=== PATIENT | male | born 1955 | race Caucasian/White ===

== ENCOUNTER 2017-03-19 22:09 | Observation (INO) | payer BC ==
--- NOTE | 2017-03-19 22:53 | ED ---
Chest Pain HPI - General Chief Complaint: Chest Pain Stated Complaint: Chest Pain Time Seen by Provider: 03/19/17 22:24 Source: patient Mode of arrival: ambulatory Limitations: no limitations - History of Present Illness Initial Comments: This patient is a 61-year-old man who presents to be evaluated for left-sided chest pain that developed approximately 8:30 PM tonight while he was driving home from [place]. The patient states that it is an aching, he thought that it may be related to the muscle body hadn't exerted himself to the past few days. When the pain felt like it was going to his neck and also to his left arm he decided to be checked here. He did take aspirin. The patient states the pain is aching, constant, was moderate but is now mild. He did not have any associated symptoms that came after the pain started. He did state that he felt like he had an upset stomach earlier, and he tried a milkshake for that but didn't really change. MD Complaint: chest pain Onset/Timin -: hour(s) Onset: other (While driving) Pain Location: left chest Pain Radiation: LUE, neck Severity: moderate Quality: dull Consistency: constant Improves With: nothing Worsens With: nothing Treatments Prior to Arrival: aspirin - Related Data Home Medications Medication Instructions Recorded Confirmed Aspirin 325 mg PO DAILY 01/19/16 03/19/17 Cholecalciferol [Vitamin D3] 5,000 unit PO DAILY 01/19/16 03/19/17 Loratadine [Claritin] 10 mg PO DAILY PRN 01/19/16 03/19/17 Multivitamins, Thera [Multivitamin 1 tab PO DAILY 03/19/17 03/19/17 (formulary)] Terbinafine [LamISIL] 250 mg PO DAILY 03/19/17 03/19/17 Triamcinolone Acetonide [Nasacort] 1 spray EA NOSTRIL HS 03/19/17 03/19/17 Allergies Allergy/AdvReac Type Severity Reaction Status Date / Time adhesive tape Allergy Itching/Swe Verified 03/19/17 22:58 lling cephalexin [From Keflex] AdvReac Nausea & Verified 03/19/17 22:58 Vomiting Review of Systems ROS Statement: Those systems with pertinent positive or pertinent negative responses have been documented in the HPI. ROS Other: All systems not noted in ROS Statement are negative. Constitutional: Denies: fever, chills Respiratory: Denies: cough, dyspnea Cardiovascular: Reports: as per HPI, chest pain. Denies: palpitations, edema, syncope Gastrointestinal: Reports: as per HPI, nausea. Denies: abdominal pain, vomiting , diarrhea Genitourinary: Denies: dysuria, hematuria Musculoskeletal: Denies: back pain Skin: Denies: rash Neurological: Denies: headache, weakness, numbness EKG Findings - EKG Results: EKG: interpreted by DREA CABELLO, sinus rhythm (Rate 73 bpm), normal axis, normal QRS, normal ST/T, no acute changes - MT, Pacemaker, Normal: Normal tracing: normal tracing Past Medical History Past Medical History: Hypertension, Sleep Apnea/CPAP/BIPAP Additional Past Medical History / Comment(s): LEFT INGUINAL AND UMBILICAL HERNIA History of Any Multi-Drug Resistant Organisms: None Reported Past Surgical History: Orthopedic Surgery Additional Past Surgical History / Comment(s): ROC SHOULDER SX, LEFT KNEE ARTHROSCOPY, UMBILICAL AND INGUINAL HERNIA Past Anesthesia/Blood Transfusion Reactions: Previous Problems w/ Anesthesia, Motion Sickness, Postoperative Nausea & Vomiting (PONV) Additional Past Anesthesia/Blood Transfusion Reaction / Comment(s): PATIENT STATES LONGER TO WAKE UP" Past Psychological History: No Psychological Hx Reported Smoking Status: Never smoker - Past Family History Father Family Medical History: Cancer Additional Family Medical History / Comment(s): PROSTATE Mother Family Medical History: Cancer Additional Family Medical History / Comment(s): SKIN General Exam Limitations: no limitations General appearance: alert, in no apparent distress Head exam: Present: atraumatic, normocephalic Eye exam: Present: normal appearance. Absent: scleral icterus, conjunctival injection ENT exam: Present: normal oropharynx Neck exam: Present: normal inspection, full ROM Respiratory exam: Present: normal lung sounds bilaterally. Absent: respiratory distress, wheezes, rales, rhonchi, stridor Cardiovascular Exam: Present: regular rate, normal rhythm, normal heart sounds. Absent: systolic murmur, diastolic murmur, rubs, gallop GI/Abdominal exam: Present: soft. Absent: distended, tenderness, guarding, rebound, mass Extremities exam: Present: normal inspection, normal capillary refill. Absent: pedal edema, calf tenderness Back exam: Present: normal inspection. Absent: CVA tenderness (R), CVA tenderness (L) Neurological exam: Present: alert Skin exam: Present: warm, dry, intact, normal color. Absent: rash Course Vital Signs 03/19/17 03/19/17 22:16 22:49 Temperature 97.7 F Pulse Rate 85 75 Respiratory 18 16 Rate Blood Pressure 129/86 131/78 O2 Sat by Pulse 98 98 Oximetry Disposition Clinical Impression: Chest pain Disposition: ADMITTED IP TO THIS HOSP Condition: Fair Referrals: Mane Griffiths DO [Primary Care Provider] - 1-2 days
[2017-03-19 23:07] LABS: Basophils % (A) 1 %; CH 30.2; CHCM 34.6; Eosinophils # (A) 0.2 k/uL (0-0.7); Eosinophils % (A) 2 %; HCT 40.8 % (39.0-53.0); HDW 2.62; HGB 14.7 gm/dL (13.0-17.5); Luc # (Auto) 0.11; Luc % (Auto) 2; Lymphocytes % (A) 28 %; MCH 31.6 pg (25.0-35.0); MCV 87.8 fL (80.0-100.0); Mean Platelet Volume 7.5; Monocytes # (A) 0.5 k/uL (0-1.0); Monocytes % (A) 6 %; Neutrophils # (A) 4.4 k/uL (1.3-7.7); Neutrophils % (A) 61 %; RBC 4.65 m/uL (4.30-5.90); RDW 13.6 % (11.5-15.5); WBC 7.2 k/uL (3.8-10.6); WBC (Perox) 6.81
[2017-03-19 23:23] LABS: ALT 50 U/L (21-72); AST 30 U/L (17-59); Alkaline Phosphatase 65 U/L (38-126); Anion Gap 11 mmol/L; Blood Urea Nitrogen 15 mg/dL (9-20); Calcium 9.6 mg/dL (8.4-10.2); Carbon Dioxide 25 mmol/L (22-30); Chloride 106 mmol/L (98-107); Glucose 124 mg/dL (74-99); Magnesium 2.1 mg/dL (1.6-2.3); Non-African American GFR(MDRD) >60 (>60 ml/min/1.73 sqM); Potassium 4.2 mmol/L (3.5-5.1); Sodium 142 mmol/L (137-145); Total Bilirubin 0.2 mg/dL (0.2-1.3); Total Protein 6.6 g/dL (6.3-8.2)
[2017-03-19 23:28] LABS: Creatine Kinase 143 U/L (55-170)
[2017-03-19] MEDS ORDERED: MORPHINE SULFATE 2 MG/ML SYRINGE IVP PRN (23:41)
[2017-03-19 23:42] LABS: Creatine Kinase MB 1.7 ng/mL (0.0-2.4); Troponin I <0.012 ng/mL (0.000-0.034)
--- NOTE | 2017-03-19 23:43 | XR ---
EXAM: XR Chest, 2 Views CLINICAL HISTORY: Reason: Chest Pain TECHNIQUE: Frontal and lateral views of the chest. COMPARISON: None. FINDINGS: Lungs: Hyperinflation of both lungs is seen with probable mild interstitial fibrotic changes, likely representing COPD. No evidence of consolidation. Pleural space: Unremarkable. No pneumothorax. Heart: Unremarkable. No cardiomegaly. Mediastinum: Unremarkable. Bones/joints: Unremarkable. IMPRESSION: Hyperinflation of both lungs with probable mild interstitial fibrotic changes, likely representing COPD.
[2017-03-20 00:13] LABS: INR 0.9 (<1.1); Prothrombin Time 9.5 sec (9.0-12.0)
[2017-03-20 00:20] LABS: Partial Thromboplastin Time 22.1 sec (22.0-30.0)
[2017-03-20 00:39] VITALS: BMI 29.7
[2017-03-20] MEDS ORDERED: FLUTICASONE 50MCG/SPRAY NASAL 16GM EA NOSTRIL SCH ×2 (00:41→21:00)
[2017-03-20] MEDS: NITROGLYCERIN SL TABS 0.4 MG TAB SUBLINGUAL PRN ×2 (00:45→00:55)
[2017-03-20 06:47] LABS: Cholesterol 182 mg/dL (<200); HDL Cholesterol 35 mg/dL (40-60); Triglycerides 160 mg/dL (<150)
[2017-03-20 07:01] LABS: Creatine Kinase 119 U/L (55-170)
[2017-03-20 07:14] LABS: Creatine Kinase MB 1.1 ng/mL (0.0-2.4); Troponin I <0.012 ng/mL (0.000-0.034)
[2017-03-20 07:34] VITALS: RESP 18
[2017-03-20] MEDS ORDERED: CHOLECALCIFEROL 1,000 UNIT TAB PO SCH (09:00)
[2017-03-20] MEDS ORDERED: METOPROLOL TARTRATE 25 MG TAB PO SCH (09:00)
[2017-03-20] MEDS ORDERED: ASPIRIN 325 MG TAB PO SCH (09:00)
[2017-03-20 11:34] LABS: Creatine Kinase 241 U/L (55-170)
[2017-03-20 11:45] LABS: Creatine Kinase MB 1.1 ng/mL (0.0-2.4); Troponin I <0.012 ng/mL (0.000-0.034)
--- NOTE | 2017-03-20 14:14 | CONS ---
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 He came into the hospital with a left lateral, nondescript chest tightness. Pain is more in the left anterior chest towards his shoulder and also over the deltoid area. Pain seems musculoskeletal, occurs with movement but he does not recall doing any significant physical activity. He apparently was driving home from [id number] when he experienced this, continued to ache, made him concerned and came into the hospital. He took an aspirin, obtained relief and then again took some nitroglycerin and had some relief. Relief with nitroglycerine is very inconsistent. At the time of my evaluation, he is pain-free, resting comfortably. EKG's are normal. Two sets of troponins are normal. PAST MEDICAL HISTORY: 1. Sleep apnea, he uses a CPAP. 2. History of hypertension for which he is not on any regular medication, but apparently his pressure has been good lately. 3. He is status post shoulder surgery, left knee arthroscopy, umbilical and inguinal hernia. EKG revealed a sinus mechanism without significant ST-T changes. Laboratory data revealed that his 3 sets of troponins are normal. LDL cholesterol is 115. No other significant abnormalities were noted. D-dimer was normal. On examination, blood pressure is 126/70, pulse rate is 70 per minute, regular. HEENT unremarkable. Fundus was not examined by me. Neck is supple, no JVD. I do not hear a carotid bruit. There is no thyromegaly. Heart exam reveals S1, S2 heard normally without a rub, murmur or gallop. Lungs are clear. Abdomen is soft, nontender. Lower extremities reveal normal pulses, no edema. Central nervous system is normal. EKG reveals sinus mechanism, no acute changes. IMPRESSION: 1. Atypical chest pain. 2. Question of hypertension. 3. History of sleep apnea, uses a CPAP. RECOMMENDATIONS: I am recommending that we will perform a stress echo and based on this, I will make further recommendations. No intervention is necessary unless we find abnormality on the stress test. Discussed my thoughts in detail with the patient and . Thank you very much for the consult. CORNELIO
[2017-03-20 16:33] VITALS: BP 116/80; PULSE 68; TEMP 98.4
--- NOTE | 2017-03-21 10:50 | ECHOF ---
Referral Reason: MEASUREMENTS -------- HEIGHT: 182.9 cm WEIGHT: 99.8 kg BP: 185/64 RVIDd: 2.8 cm (< 3.3) IVSd: 1.3 cm (0.6 - 1.1) LVIDd: 4.2 cm (3.9 - 5.3) LVPWd: 1.3 cm (0.6 - 1.1) IVSs: 1.8 cm LVIDs: 3.1 cm LVPWs: 1.7 cm LAESV Index (A-L): 15.82 ml/m Ao Diam: 4.4 cm (2.0 - 3.7) AV Cusp: 1.6 cm (1.5 - 2.6) LA Diam: 3.1 cm (2.7 - 3.8) MV EXCURSION: 10.412 mm (> 18.000) MV EF SLOPE: 48 mm/s (70 - 150) EPSS: 0.8 cm MV E James: 0.48 m/s MV DecT: 402 ms MV A James: 0.64 m/s MV E/A Ratio: 0.74 RAP: 5.00 mmHg RVSP: 8.21 mmHg FINDINGS -------- Sinus rhythm. This was a technically adequate study. The left ventricular size is normal. There is mild concentric left ventricular hypertrophy. Overall left ventricular systolic function is normal with, an EF between 55 - 60 %. The right ventricle is normal in size and function. Normal LA size by volume 22+/-6 ml/m2. The right atrium is normal in size. The aortic valve is trileaflet, and appears structurally normal. No aortic stenosis or regurgitation. The mitral valve is normal. Mild mitral regurgitation is present. Mild tricuspid regurgitation present. There is no evidence of pulmonary hypertension. The right ventricular systolic pressure, as measured by Doppler, is 8.21mmHg. The pulmonic valve was not well visualized. There is no pulmonic regurgitation present. The aortic root size is normal. Normal inferior vena cava with normal inspiratory collapse consistent with estimated right atrial pressure of 5 mmHg. There is no pericardial effusion. CONCLUSIONS -------- 1. Sinus rhythm. 2. The aortic root size is normal. 3. There is no pericardial effusion. 4. This was a technically adequate study. 5. There is mild concentric left ventricular hypertrophy. 6. Overall left ventricular systolic function is normal with, an EF between 55 - 60 %. 7. Normal LA size by volume 22+/-6 ml/m2. 8. The aortic valve is trileaflet, and appears structurally normal. No aortic stenosis or regurgitation. 9. Mild mitral regurgitation is present. 10. There is no evidence of pulmonary hypertension. 11. There is no pulmonic regurgitation present. KILN CHARGER: Aramis Andrade RDCS
--- NOTE | 2017-03-21 16:13 | ECHOF ---
Referral Reason:cp MEASUREMENTS -------- HEIGHT: 183.0 cm WEIGHT: 99.8 kg BP: 124/85 WallScoring: string WallScoring: string WallScoring: string FINDINGS -------- Utilizing the standard Raul protocol the patient was exercised for 7 minutes, 21 seconds, achieving a maximum heart rate of 152 , which is 95 % of predicted maximal heart rate. There was physiologic heart rate and blood pressure response to exercise. Max Heart Rate: 152 % of Max Predicted Heart Rate: 95 Rest Heart Rate: 64 Rest BP: 124/85 Max BP: 178/63 Mets Achieved: 8.9 The test was stopped because of fatigue. This level of exercise represents an average exercise tolerance for age. Sinus rhythm. In response to stress, the ECG showed no ST-T wave changes (see exercise report for details). In response to stress, the ECG showed no ST-T wave changes (see exercise report for details). There were normal blood pressure and heart rate responses to stress. LV size, wall thickness and systolic function are normal, with an EF of 60%. Echo images were acquired at peak stress which demonstrated appropriate augmentation of all left ventricular segments with slight decrease in cavity size. CONCLUSIONS -------- 1. The test was stopped because of fatigue. 2. This level of exercise represents an average exercise tolerance for age. 3. No 2D echocardiographic evidence of inducible ischemia to achieved workload. FIRE ALARM INSTALLER: Aramis Andrade RDCS
--- NOTE | 2017-03-21 16:17 | EST ---
Referral Reason:cp MEASUREMENTS -------- HEIGHT: 183.0 cm WEIGHT: 99.8 kg BP: 124/85 FINDINGS -------- Utilizing the standard Raul protocol the patient was exercised for 7 minutes, 21 seconds, achieving a maximum heart rate of 152 , which is 95 % of predicted maximal heart rate. There was physiologic heart rate and blood pressure response to exercise. Max Heart Rate: 152 % of Max Predicted Heart Rate: 95 Rest Heart Rate: 64 Rest BP: 124/85 Max BP: 178/63 Mets Achieved: 8.9 The test was stopped because of fatigue. This level of exercise represents an average exercise tolerance for age. Sinus rhythm. In response to stress, the ECG showed no ST-T wave changes (see exercise report for details). In response to stress, the ECG showed no ST-T wave changes (see exercise report for details). There were normal blood pressure and heart rate responses to stress. LV size, wall thickness and systolic function are normal, with an EF of 60%. Echo images were acquired at peak stress which demonstrated appropriate augmentation of all left ventricular segments with slight decrease in cavity size. CONCLUSIONS -------- 1. The test was stopped because of fatigue. 2. This level of exercise represents an average exercise tolerance for age. 3. No 2D echocardiographic evidence of inducible ischemia to achieved workload. CONSUMER INSIGHTS SPECIALIST: SHAILESH Love
== END 2017-03-20 18:28 | disposition home or self-care (01) ==
LOC: EC 22:09 → 3OBS 23:41
PROVIDERS: ADMIT Family Medicine; ATTEND Family Medicine
DX: R07.89 Other chest pain (principal); K30 Functional dyspepsia; G47.30 Sleep apnea, unspecified; I10 Essential (primary) hypertension; Z79.82 Long term (current) use of aspirin; Z79.899 Other long term (current) drug therapy; Z79.51 Long term (current) use of inhaled steroids; Z88.3 Allergy status to other anti-infective agents; Z91.048 Other nonmedicinal substance allergy status; Z99.89 Dependence on other enabling machines and devices
CPT/HCPCS: 99285 ×2; 36415; 93005; 93017; 93306; 93350; 85379; 80061; 80053; 82550 ×2; 82553 ×2; 83735; 84484 ×2; 85025; 85610; 85730; 71020; G0378 ×2

== ENCOUNTER 2018-06-16 14:57 | Emergency (ER) | payer BC ==
[2018-06-16] MEDS ORDERED: OXYMETAZOLINE 0.05% NASL SPRAY 1 SPRAY BOTTLE NASAL STA (15:19)
[2018-06-16] MEDS: cloNIDine HCL 0.1 MG TAB PO STA ×2 (15:49→16:38)
--- NOTE | 2018-06-16 16:40 | ED ---
ENT HPI - General Chief complaint: ENT Stated complaint: Nose bleed Time Seen by Provider: 06/16/18 15:19 Source: patient, RN notes reviewed Mode of arrival: ambulatory Limitations: no limitations - History of Present Illness Initial comments: 62-year-old male presented Department with chief complaint of epistaxis. Patient states it started after he pulled her out of his nose. Patient states then he seemed to have a little bit of bleeding which was persistent and increased to clotting. Patient states he has no headache, dizziness, shortness breath, chest pain. Patient states he does not take any blood thinners. Patient states he has had issues with no bleeds when he was an child. Patient states that he used to be on blood pressure medication but recently stopped and wonders if this had anything to do with it. - Related Data Home Medications Medication Instructions Recorded Confirmed Cholecalciferol [Vitamin D3] 5,000 unit PO DAILY 01/19/16 06/16/18 Multivitamins, Thera [Multivitamin 1 tab PO DAILY 03/19/17 06/16/18 (formulary)] Fluticasone Nasal [place] [Flonase 1 spray EA NOSTRIL HS 06/16/18 06/16/18 Nasal [place]] Naproxen [Naprosyn] 250 mg PO DAILY PRN 06/16/18 06/16/18 Previous Rx's Medication Instructions Recorded Nebivolol [Bystolic] 5 mg PO DAILY #30 tablet 06/16/18 Allergies Allergy/AdvReac Type Severity Reaction Status Date / Time adhesive tape Allergy Itching/Swe Verified 06/16/18 15:28 lling cephalexin [From Keflex] AdvReac Nausea & Verified 06/16/18 15:28 Vomiting Review of Systems ROS Statement: Those systems with pertinent positive or pertinent negative responses have been documented in the HPI. ROS Other: All systems not noted in ROS Statement are negative. Past Medical History Past Medical History: Hypertension, Sleep Apnea/CPAP/BIPAP Additional Past Medical History / Comment(s): LEFT INGUINAL AND UMBILICAL HERNIA , irregular heartbeat in the past, arthritis in neck History of Any Multi-Drug Resistant Organisms: None Reported Past Surgical History: Cholecystectomy, Orthopedic Surgery Additional Past Surgical History / Comment(s): ROC SHOULDER SX, roc KNEE ARTHROSCOPY, UMBILICAL AND INGUINAL HERNIA Past Anesthesia/Blood Transfusion Reactions: Previous Problems w/ Anesthesia, Motion Sickness, Postoperative Nausea & Vomiting (PONV) Additional Past Anesthesia/Blood Transfusion Reaction / Comment(s): PATIENT STATES LONGER TO WAKE UP" Past Psychological History: No Psychological Hx Reported Smoking Status: Never smoker Past Alcohol Use History: Rare Past Drug Use History: None Reported - Past Family History Father Family Medical History: Cancer Additional Family Medical History / Comment(s): PROSTATE Mother Family Medical History: Cancer Additional Family Medical History / Comment(s): SKIN General Exam Limitations: no limitations General appearance: alert, in no apparent distress Head exam: Present: atraumatic, normocephalic, normal inspection Eye exam: Present: normal appearance, PERRL, EOMI. Absent: scleral icterus, conjunctival injection, periorbital swelling ENT exam: Present: normal oropharynx, mucous membranes moist. Absent: normal exam (Blood noted in the left nostril) Neck exam: Present: normal inspection, full ROM. Absent: tenderness, meningismus, lymphadenopathy Respiratory exam: Present: normal lung sounds bilaterally. Absent: respiratory distress, wheezes, rales, rhonchi, stridor Cardiovascular Exam: Present: regular rate, normal rhythm, normal heart sounds. Absent: systolic murmur, diastolic murmur, rubs, gallop, clicks Neurological exam: Present: alert, oriented X3, CN II-XII intact Course Vital Signs 06/16/18 06/16/18 06/16/18 15:07 15:25 15:48 Temperature 98.7 F Pulse Rate 95 88 76 Respiratory 18 20 20 Rate Blood Pressure 156/112 156/104 139/92 O2 Sat by Pulse 98 99 Oximetry Medical Decision Making - Medical Decision Making 62-year-old male presented for epistaxis left nostril. Patient was given Afrin emergency department there is been no rebleeding. Patient's blood pressure has been slightly labile. He has recently stopped his diastolic. Patient will restart 5 mg and follow-up with his PCP. We did discuss treatment for rebleeding and return parameters. Disposition Clinical Impression: Epistaxis, Hypertension Disposition: HOME SELF-CARE Condition: Stable Instructions: Nosebleed (ED) Additional Instructions: Please return to the Emergency Department if symptoms worsen or any other concerns. Prescriptions: Nebivolol [Bystolic] 5 mg PO DAILY #30 tablet Is patient prescribed a controlled substance at d/c from ED?: No Referrals: Mane Griffiths DO [Primary Care Provider] - 1-2 days Time of Disposition: 16:39
[2018-06-16 16:41] VITALS: BP 146/97; PULSE 78; RESP 16; TEMP 97.9
== END 2018-06-16 16:51 | disposition home or self-care (01) ==
LOC: EC 14:57
DX: I10 Essential (primary) hypertension (principal); M19.90 Unspecified osteoarthritis, unspecified site; G47.30 Sleep apnea, unspecified; Z99.89 Dependence on other enabling machines and devices; Z90.49 Acquired absence of other specified parts of digestive tract; Z98.890 Other specified postprocedural states; Z79.51 Long term (current) use of inhaled steroids; Z88.1 Allergy status to other antibiotic agents; Z91.048 Other nonmedicinal substance allergy status
CPT/HCPCS: 99283

== ENCOUNTER → 2018-10-19 | Outpatient (CLI) | payer BC ==
--- NOTE | 2018-10-19 23:10 | CT ---
EXAMINATION TYPE: CT pelvis w con DATE OF EXAM: 10/19/2018 COMPARISON: None. HISTORY: left groin pain and burning. hx of multiple hernia repairs. CT DLP: 1143.6 mGycm Automated exposure control for dose reduction was used. CONTRAST: Performed with oral and with IV Contrast, patient injected with 100 mL of Isovue 300. FINDINGS: Oral contrast does not reach level of the terminal ileum making evaluation of distal bowel slightly s uboptimal. There is no suspicious small or large bowel dilatation. Few diverticula proximal sigmoid c olon are present without CT evidence for acute diverticulitis. Prostate gland is mildly enlarged in size bulging on bladder base, underlying BPH may be present. Cor relate clinically. The bladder is felt within normal limits. There is no concerning pelvic fluid collection. There is no suspicious pelvic adenopathy. There is small to moderate-sized fat-containing right inguinal hernia. No suspicious left groin herni a is present. No groin adenopathy is identified. Muscle bulk bilateral thighs is symmetric and felt w ithin normal limits. There is mild to moderate bilateral axial joint space loss in both hips with mild acetabular spurring . Sclerotic focus left iliac bone. Sacroiliac joint and cystic change favors benign bone island. Sacr oiliac joints are preserved. Small posterior disc herniations efface the anterior thecal sac at L4-L5 and L5-S1 levels with mild facet arthropathy lower lumbar levels seen. IMPRESSION: CONFIRMATION OF SMALL TO BORDERLINE MODERATE SIZED FAT CONTAINING RIGHT INGUINAL HERNIA.
== END | disposition home or self-care (01) ==
LOC: RADCTMAIN 15:18
PROVIDERS: ATTEND Surgery
DX: K40.90 Unilateral inguinal hernia, without obstruction or gangrene, not specified as recurrent (principal)
CPT/HCPCS: 72193; Q9967

== ENCOUNTER → 2018-11-04 | Outpatient (CLI) | payer BC | END | disposition home or self-care (01) | LOC: LABWHC1 16:33 | PROVIDERS: ATTEND Surgery | DX: Z01.812 Encounter for preprocedural laboratory examination (principal); R10.30 Lower abdominal pain, unspecified | CPT/HCPCS: 36415; 82565; 84520 ==

== ENCOUNTER 2019-05-21 07:07 | Emergency (ER) | payer BC ==
[2019-05-21] MEDS ORDERED: ONDANSETRON 4 MG/2 ML VIAL IVP STA (07:24)
[2019-05-21] MEDS ORDERED: SODIUM CHLORIDE 0.9% 1,000 ML IV STA (07:24)
[2019-05-21] MEDS ORDERED: MECLIZINE 12.5 MG TAB PO STA (07:58)
--- NOTE | 2019-05-21 08:02 | ED ---
General Adult HPI - General Chief complaint: Dizziness Stated complaint: Dizziness Time Seen by Provider: 05/21/19 07:20 Source: patient Limitations: no limitations - History of Present Illness Initial comments: Dictation was produced using [employer] dictation software. please excuse any grammatical, word or spelling errors. Chief Complaint: 63-year-old male with past medical history of hypertension, sleep apnea and the PV presents with dizziness and headache since yesterday. History of Present Illness: he is 63-year-old male who has past medical history of BPPV. Patient states that since last night he's been having significant vertiginous symptoms. Patient has a history of BPPV. He was taught previously how to perform David maneuvers. Try that yesterday with small improvement of symptoms however not complete resolution of symptoms. Morning his symptoms return. Patient also has a left temporal headache. Denies any jaw claudication, no vision loss. Does feel that there is some slight hyperesthesias to the left maxillary area. Patient reports that his symptoms are worse with movement. He's had multiple episodes of vomiting secondary to this. Denies any hearing loss or tinnitus. The ROS documented in this emergency department record has been reviewed and confirmed by me. Those systems with pertinent positive or negative responses have been documented in the HPI. All other systems are other negative and/or noncontributory. PHYSICAL EXAM: General Impression: Alert and oriented x3, not in acute distress HEENT: Normocephalic atraumatic, extra-ocular movements intact, pupils equal and reactive to light bilaterally, mucous membranes moist. Cardiovascular: Heart regular rate and rhythm, S1&S2 audible, no murmurs, rubs or gallops Chest: Lungs clear to auscultation bilaterally, no rhonchi, no wheeze, no rales Abdomen: Bowel sounds present, abdomen soft, non-tender, non-distended, no organomegaly Musculoskeletal: Pulses present and equal in all extremities, no peripheral edema Motor: no focal deficits noted Neurological: CN II-XII grossly intact, no focal motor or sensory deficits noted, left beating nystagmus Skin: Intact with no visualized rashes Psych: Normal affect and mood ED course: 63-year-old male presents with vertigo since yesterday. He also has complaint of headache since yesterday. Signs upon arrival are within acceptable limits. Patient reports that his headache is not the worst pain of his life and is not thunderclap. No clinical suspicion of subarachnoid hemorrhage at this time. HINTS exam was performed. HINTS exam is not suggestive of central vertigo. Laboratory evaluation obtained. CBC and metabolic panel is unremarkable. Patient was treated with Antivert, Zofran and intravenous fluids. Patient's symptoms are much improved. Patient handles her baseline. Patient given prescription for Antivert for peripheral vertigo. He is given referral to outpatient ENT physician for outpatient management of peripheral vertigo. Patient is understandable and agreeable to disposition. Return parameters discussed.. EKG interpretation: Ventricular rate 60, normal sinus rhythm, SC interval 142, care is 102, QTc 44. No SC prolongation, no QTC prolongation, no ST or T-wave changes noted. EKG compared to 03/20/2017 showing no changes. Overall, this EKG is unremarkable - Related Data Home Medications Medication Instructions Recorded Confirmed Cholecalciferol [Vitamin D3 (25 5,000 unit PO DAILY 01/19/16 05/21/19 Mcg = 1000 Iu)] Multivitamins, Thera [Multivitamin 1 tab PO DAILY 03/19/17 05/21/19 (formulary)] Beet Root 1 tab PO DAILY 05/21/19 05/21/19 Glucosamine-Chondr 500-400Mg 1 tab PO DAILY 05/21/19 05/21/19 Lutein 10 mg PO DAILY 05/21/19 05/21/19 Nebivolol [Bystolic] 5 mg PO DAILY PRN 05/21/19 05/21/19 Previous Rx's Medication Instructions Recorded Meclizine [Antivert] 25 mg PO TID PRN #15 tab 05/21/19 Allergies Allergy/AdvReac Type Severity Reaction Status Date / Time adhesive tape Allergy Itching/Swe Verified 05/21/19 08:09 lling cephalexin [From Keflex] AdvReac Nausea & Verified 05/21/19 08:09 Vomiting Review of Systems ROS Statement: Those systems with pertinent positive or pertinent negative responses have been documented in the HPI. ROS Other: All systems not noted in ROS Statement are negative. Past Medical History Past Medical History: Hypertension, Sleep Apnea/CPAP/BIPAP Additional Past Medical History / Comment(s): LEFT INGUINAL AND UMBILICAL HERNIA, irregular heartbeat in the past, arthritis in neck History of Any Multi-Drug Resistant Organisms: None Reported Past Surgical History: Cholecystectomy, Orthopedic Surgery Additional Past Surgical History / Comment(s): ROC SHOULDER SX, roc KNEE ARTHROSCOPY, UMBILICAL AND INGUINAL HERNIA Past Anesthesia/Blood Transfusion Reactions: Previous Problems w/ Anesthesia, Motion Sickness, Postoperative Nausea & Vomiting (PONV) Additional Past Anesthesia/Blood Transfusion Reaction / Comment(s): PATIENT STATES LONGER TO WAKE UP" Past Psychological History: No Psychological Hx Reported Smoking Status: Never smoker Past Alcohol Use History: Rare Past Drug Use History: None Reported - Past Family History Father Family Medical History: Cancer Additional Family Medical History / Comment(s): PROSTATE Mother Family Medical History: Cancer Additional Family Medical History / Comment(s): SKIN General Exam Limitations: no limitations Course Vital Signs 05/21/19 07:14 Temperature 97.6 F Pulse Rate 85 Respiratory 20 Rate Blood Pressure 139/89 O2 Sat by Pulse 100 Oximetry Medical Decision Making - Lab Data Result diagrams: 05/21/19 07:45 05/21/19 07:45 Lab Results 05/21/19 05/21/19 Range/Units 07:45 07:45 WBC 6.9 (3.8-10.6) k/uL RBC 4.75 (4.30-5.90) m/uL Hgb 14.4 (13.0-17.5) gm/dL Hct 42.9 (39.0-53.0) % MCV 90.3 (80.0-100.0) fL MCH 30.3 (25.0-35.0) pg MCHC 33.6 (31.0-37.0) g/dL RDW 13.5 (11.5-15.5) % Plt Count 219 (150-450) k/uL Neutrophils % 72 % Lymphocytes % 20 % Monocytes % 6 % Eosinophils % 1 % Basophils % 1 % Neutrophils # 5.0 (1.3-7.7) k/uL Lymphocytes # 1.4 (1.0-4.8) k/uL Monocytes # 0.4 (0-1.0) k/uL Eosinophils # 0.1 (0-0.7) k/uL Basophils # 0.0 (0-0.2) k/uL Sodium 141 (137-145) mmol/L Potassium 4.2 (3.5-5.1) mmol/L Chloride 104 (98-107) mmol/L Carbon Dioxide 26 (22-30) mmol/L Anion Gap 11 mmol/L BUN 14 (9-20) mg/dL Creatinine 0.96 (0.66-1.25) mg/dL Est GFR (CKD-EPI)AfAm >90 (>60 ml/min/1.73 sqM) Est GFR (CKD-EPI)NonAf 85 (>60 ml/min/1.73 sqM) Glucose 139 H (74-99) mg/dL Calcium 9.9 (8.4-10.2) mg/dL Magnesium 2.0 (1.6-2.3) mg/dL Disposition Clinical Impression: Vertigo Disposition: HOME SELF-CARE Condition: Good Instructions (If sedation given, give patient instructions): Dizziness (ED) Prescriptions: Meclizine [Antivert] 25 mg PO TID PRN #15 tab PRN Reason: dizziness Is patient prescribed a controlled substance at d/c from ED?: No Referrals: Preston Jacinto DO [Doctor of Osteopathic Medicine] - 1-2 days Time of Disposition: 09:24
[2019-05-21 08:22] LABS: Basophils % (A) 1 %; Eosinophils # (A) 0.1 k/uL (0-0.7); Eosinophils % (A) 1 %; HCT 42.9 % (39.0-53.0); HGB 14.4 gm/dL (13.0-17.5); Lymphocytes # (A) 1.4 k/uL (1.0-4.8); Lymphocytes % (A) 20 %; MCH 30.3 pg (25.0-35.0); MCHC 33.6 g/dL (31.0-37.0); MCV 90.3 fL (80.0-100.0); Mean Platelet Volume 7.2; Monocytes # (A) 0.4 k/uL (0-1.0); Monocytes % (A) 6 %; Neutrophils % (A) 72 %; Platelet Count 219 k/uL (150-450); RBC 4.75 m/uL (4.30-5.90); RDW 13.5 % (11.5-15.5); WBC 6.9 k/uL (3.8-10.6)
[2019-05-21 08:36] LABS: African American GFR (CKD) >90 (>60 ml/min/1.73 sqM); Anion Gap 11 mmol/L; Blood Urea Nitrogen 14 mg/dL (9-20); Calcium 9.9 mg/dL (8.4-10.2); Carbon Dioxide 26 mmol/L (22-30); Chloride 104 mmol/L (98-107); Glucose 139 mg/dL (74-99); Non-African American GFR(CKD) 85 (>60 ml/min/1.73 sqM); Potassium 4.2 mmol/L (3.5-5.1); Sodium 141 mmol/L (137-145)
[2019-05-21 10:01] VITALS: BP 129/87; PULSE 73; RESP 18; TEMP 98.3
== END 2019-05-21 10:01 | disposition home or self-care (01) ==
LOC: EC 07:07
DX: R42 Dizziness and giddiness (principal); R51 Headache; R11.10 Vomiting, unspecified; R20.3 Hyperesthesia; I10 Essential (primary) hypertension; G47.30 Sleep apnea, unspecified; Z99.89 Dependence on other enabling machines and devices; Z86.69 Personal history of other diseases of the nervous system and sense organs; Z79.899 Other long term (current) drug therapy; Z91.048 Other nonmedicinal substance allergy status; Z88.1 Allergy status to other antibiotic agents
CPT/HCPCS: 36415; 93005; 80048; 83735; 85025; 99284; 96374; 96361; J2405